=== PATIENT | female | born 1930 | race Caucasian/White ===

== ENCOUNTER 2019-01-04 18:03 | Inpatient (IN) | payer OTHER, MEDICARE ==
[2019-01-04 18:39] LABS: #Basophils 0.1 thou/uL (0.0-0.2); #Eosinphils 0.2 thou/uL (0.0-0.7); #Lymphocytes 1.2 thou/uL (1.20-3.40); #Monocytes 1.1 thou/uL (0.11-0.59); #Neutrophils 10.3 thou/uL (1.40-6.50); %Basophils 0.4 % (0.0-1.0); %Eosinophils 1.6 % (0.0-10.0); %Lymphocytes 9.1 % (21.0-51.0); %Monocytes 8.6 % (0.0-10.0); %Neutrophils 80.3 % (42.0-75.0); Hemoglobin 11.8 g/dL (12.0-16.0); Mean Corpuscular HGB CONC 34.8 g/dL (32.0-36.0); Mean Corpuscular Hemoglobin 30.6 pg (27.0-31.0); Mean Corpuscular Volume 88.1 fL (78.0-98.0); Platelet Count 312 thou/uL (130-400); RBC Distribution Width 11.8 % (11.5-14.5); Red Blood Cell (RBC) Count 3.86 mill/uL (4.20-5.40); White Blood Cell (WBC) Count 12.8 thou/uL (4.8-10.8)
[2019-01-04 19:04] LABS: ALT (SGPT) 60 U/L (8-55); AST (SGOT) 48 U/L (5-34); Albumin 3.6 g/dL (3.4-4.8); Alkaline Phosphatase 180 U/L (40-110); Anion Gap 15 mmol/L (10-20); BUN (Urea Nitrogen) 7 mg/dL (9.8-20.1); Bilirubin, Total 0.4 mg/dL (0.2-1.2); Calc. Creatinine Clearance 0 mL/min (70-130); Calcium 9.5 mg/dL (7.8-10.44); Carbon Dioxide 24 mmol/L (23-31); Chloride 100 mmol/L (98-107); Estimated GFR-MDRD 83; Globulin 3.2 g/dL (2.4-3.5); Glucose 109 mg/dL (83-110); Protein, Total 6.8 g/dL (6.0-8.3); Sodium 136 mmol/L (136-145)
[2019-01-04 19:06] LABS: Potassium 2.6 mmol/L (3.5-5.1)
[2019-01-04] MEDS ORDERED: Potassium Chloride 20 MEQ TAB ONE (19:23)
[2019-01-04] MEDS ORDERED: cefTRIAXone\\ROCEPHIN 1 GM VIAL ONE (19:23)
[2019-01-04] MEDS ORDERED: Azithromycin 500 MG VIAL ONE ×2 (19:23→20:18)
[2019-01-04 19:27] LABS: Bilirubin Negative (Negative); Blood, Urine Negative (Negative); Clarity Clear (Clear); Glucose, Urine (Dipstick) Normal (Negative); Leukocyte Negative Leu/uL (Negative); Nitrite Negative (Negative); Protein, Urine (Dipstick) Negative (Neg-Trace); Urobilinogen Normal mg/dL (Less than 2)
--- NOTE | 2019-01-04 22:05 | HP ---
PRIMARY CARE PHYSICIAN: Dr. Janine Parikh. REASON FOR ADMISSION: Pneumonia, sepsis, and failure of outpatient therapy. HISTORY OF PRESENT ILLNESS: An 88-year-old female with a past medical history of fibromyalgia, COPD, and hypertension, who had cough, started on January 01, 2019 , patient was also having subjective fever and chills. She was feeling weak and malaise. She went to urgent care on and she was diagnosed with pneumonia. Patient had a chest x-ray done at that time and subsequently, she had followup visit today and patient was found with worsening of infiltration. She had bibasilar effusion with infiltration. Patient was given oral antibiotic therapy, but patient did not improve and the condition worsened and that is why from urgent care today, patient was sent to ER for further evaluation. In the emergency room, patient was hypertensive, tachycardic, tachypneic, and afebrile. She was meeting sepsis criteria. Sepsis alert was initiated and patient was given azithromycin in the emergency room. Her influenza screen is negative. Patient is being admitted for further evaluation. Blood culture obtained. PAST MEDICAL HISTORY: Fibromyalgia, osteoarthritis, COPD, and hypertension. PAST SURGICAL HISTORY: Bilateral cataract surgery, shoulder surgery, appendicectomy, and hysterectomy. PAST PSYCHIATRIC HISTORY: Reviewed and negative. SOCIAL HISTORY: Patient drinks a few beers on a daily basis. She is a former smoker. She quit smoking more than 10 years ago. FAMILY HISTORY: No strong family history of premature coronary artery disease, stroke, or cancer. ALLERGIES: NO KNOWN DRUG ALLERGIES. CURRENT HOME MEDICATIONS: Patient did not bring her home medication, so unable to verify her home medication at this point. EMERGENCY ROOM COURSE: Patient has received Rocephin at urgent care and she will receive azithromycin here. Patient also received potassium chloride and IV fluid. REVIEW OF SYSTEM: All review of system reviewed with her and negative except as mentioned in HPI. PHYSICAL EXAMINATION: VITAL SIGNS: Currently, blood pressure 176/70, pulse 119, respiratory rate 26, temperature 98.0, and saturation 94% on room air. Weight 41.7 kg. GENERAL: Patient is thin, in no obvious acute distress. HEENT: Head; normocephalic, atraumatic. Eyes; pupils round, reactive to light. Extraocular muscles intact. ENT; oropharynx within normal limits. Moist mucous membranes. No oral lesion. No pharyngeal erythema. No exudate. NECK: Supple. No JVD. No meningeal signs of irritation. LUNGS: Bibasilar rales noted. Air entry reduced. No wheeze. No rhonchi. No accessory muscles of respiration in use. CARDIAC: S1, S2 regular. Tachycardia. No murmur. No gallop. No rub. ABDOMEN: Soft. Bowel sounds present. Nontender. Nondistended. No organomegaly. No mass. No suprapubic tenderness. BACK EXAMINATION: Unremarkable. No CVA tenderness. EXTREMITIES: Upper extremities, passive movement of all joints are normal. Lower extremity, no edema. Good distal pulsation. SKIN: No skin rash. HEMATOLOGICAL SYSTEM: No lymphadenopathy. NEUROLOGIC: Nonfocal examination. SIGNIFICANT LABORATORY DATA: CBC; WBC 12.8, hemoglobin 11.8, and platelet 312. BMP; sodium 136, potassium 2.6, chloride 100, carbon dioxide 24, BUN 7, creatinine 0.67, glucose 109, and calcium 9.5. LFT; protein 6.8, albumin 3.6, alkaline phosphatase 180, AST 48, ALT 60, lactic acid 1.0, and magnesium 1.9. Urinalysis normal. Influenza screen negative. ASSESSMENT/PLAN: 1. Sepsis due to pneumonia. 2. Community-acquired bacterial pneumonia. 3. Failure of outpatient therapy. 4. Abnormal LFT. 5. Anemia, normocytic, normochromic. 6. Hypertension. 7. Chronic obstructive pulmonary disease. 8. Fibromyalgia. 9. Osteoarthritis. 10. Protein-calorie malnutrition. 11. Ex-smoker. PLAN: Admission to medical floor. Continue Rocephin 1 g q.24 hour, and azithromycin 500 mg IV daily. We will repeat chest x-ray tomorrow. Nutritional support with Ensure t.i.d. We will obtain right upper quadrant ultrasound to rule out any gallbladder pathology. We will repeat labs again tomorrow. DVT prophylaxis with Lovenox 40 mg subcu daily. GI prophylaxis with Pepcid 20 mg p.o. b.i.d. We will also obtain hepatitis profile tomorrow morning. CODE STATUS: Patient is full code. Job ID: [id number] MTDD
[2019-01-04] MEDS ORDERED: Acetaminophen 325 MG TAB PO PRN (23:07)
[2019-01-04] MEDS ORDERED: Zolpidem Tartrate 5 MG TAB PO PRN (23:07)
[2019-01-04] MEDS ORDERED: Sodium Chloride 0.65% Nasal 44 ML BOT EA NARE PRN (23:07)
[2019-01-04] MEDS ORDERED: Sodium Chloride 0.9% 1,000 ML IV SCH (23:07)
[2019-01-04] MEDS ORDERED: Bisacodyl 10 MG SUPP PR PRN (23:07)
[2019-01-04] MEDS ORDERED: Loperamide HCl 2 MG CAP PO PRN (23:07)
[2019-01-04] MEDS ORDERED: Artificial Tears 18 DROP/0.9 ML EA EYE PRN (23:07)
[2019-01-04] MEDS ORDERED: HYDROcodone/Acetaminophen 5/325 mg Tablet PO PRN (23:07)
[2019-01-04] MEDS ORDERED: Senokot S 8.6-50 MG TAB PO PRN (23:07)
[2019-01-04] MEDS ORDERED: Calcium Carbonate 500 MG ChewTAB PO PRN ×2 (23:07)
[2019-01-04] MEDS ORDERED: Diabetic Tussin 200 MG/10 ML UDCUP PO PRN (23:07)
[2019-01-04] MEDS ORDERED: Cepastat Lozenges 1 LOZ PO PRN (23:07)
[2019-01-04] MEDS ORDERED: cloNIDine 0.1 MG TAB PO PRN (23:07)
[2019-01-04] MEDS ORDERED: Metoclopramide HCl 10 MG/2 ML VIAL IVP PRN (23:07)
[2019-01-04] MEDS ORDERED: Loratadine 10 MG TAB PO PRN (23:07)
[2019-01-04] MEDS ORDERED: guaiFENesin ER 600 MG TAB PO SCH (23:15)
[2019-01-04] MEDS ORDERED: methylPREDNISolone Sod Succ 40 MG VIAL IVP SCH (23:30)
[2019-01-04] MEDS: hydrALAZINE 20 MG/ML VIAL SLOW IVP PRN (23:31)
[2019-01-04] MEDS: methylPREDNISolone Sod Succ 40 MG VIAL IVP SCH (23:33)
[2019-01-04] MEDS: Vancomycin HCl 750 MG in Sodium Chloride 0.9% 250 ML 250 ML IVPB SCH (23:33)
[2019-01-05 00:11] LABS: Legionella Urinary Ag Negative (Negative); Strep pneumo Urine Ag NEGATIVE (NEGATIVE)
[2019-01-05] MEDS: methylPREDNISolone Sod Succ 40 MG VIAL IVP SCH ×3 (05:35→22:16)
[2019-01-05 05:42] LABS: #Lymphocytes 0.4 thou/uL (1.20-3.40); #Monocytes 0.1 thou/uL (0.11-0.59); #Neutrophils 6.7 thou/uL (1.40-6.50); %Basophils 0.2 % (0.0-1.0); %Eosinophils 0.3 % (0.0-10.0); %Monocytes 1.5 % (0.0-10.0); Hemoglobin 11.6 g/dL (12.0-16.0); Mean Corpuscular Hemoglobin 28.9 pg (27.0-31.0); Mean Corpuscular Volume 87.6 fL (78.0-98.0); Mean Platelet Volume 6.1 fL (7.4-10.4); Platelet Count 334 thou/uL (130-400); RBC Distribution Width 11.9 % (11.5-14.5); Red Blood Cell (RBC) Count 4.01 mill/uL (4.20-5.40); White Blood Cell (WBC) Count 7.3 thou/uL (4.8-10.8)
[2019-01-05 06:04] LABS: ALT (SGPT) 58 U/L (8-55); AST (SGOT) 46 U/L (5-34); Albumin 3.2 g/dL (3.4-4.8); Alkaline Phosphatase 170 U/L (40-110); Anion Gap 11 mmol/L (10-20); BUN (Urea Nitrogen) 7 mg/dL (9.8-20.1); Bilirubin, Total 0.3 mg/dL (0.2-1.2); Calc. Creatinine Clearance 43 mL/min (70-130); Calcium 8.9 mg/dL (7.8-10.44); Carbon Dioxide 24 mmol/L (23-31); Chloride 108 mmol/L (98-107); Estimated GFR-MDRD Greater than 90; Globulin 2.8 g/dL (2.4-3.5); Glucose 164 mg/dL (83-110); Potassium 3.3 mmol/L (3.5-5.1); Sodium 140 mmol/L (136-145)
[2019-01-05 06:25] LABS: HBCM Index 0.06 S/CO (0-0.79); HBSAg Index 0.18 S/CO (0-0.99); Hep A IgM AB Non-Reactive (NonReactive); Hep A IgM S/CO 0.15 S/CO (0-0.79); Hep B Surf Ag Non-Reactive S/CO (NonReactive); Hep C IgG Ab Non-Reactive (NonReactive); Hep C Index 0.08 S/CO (0-0.79); Hepatitis B Core IgM Abs Non-Reactive (NonReactive)
[2019-01-05] MEDS ORDERED: chlordiazePOXIDE/Clidinium Bromide Capsule PO PRN (07:39)
[2019-01-05] MEDS ORDERED: 1/2 NS w/KCL 20 mEq 1,000 ML IV SCH (07:45)
[2019-01-05] MEDS ORDERED: Potassium Chloride 20 MEQ TAB PO SCH (07:45)
[2019-01-05] MEDS: Amlodipine 5 MG TAB PO SCH ×2 (08:18→19:29)
[2019-01-05] MEDS: Saccharomyces boulardii 250 MG CAP PO SCH (08:18)
[2019-01-05] MEDS: Famotidine 20 MG TAB PO SCH (08:18)
[2019-01-05] MEDS: Metoprolol Tartrate 50 MG TAB PO SCH (08:18)
[2019-01-05] MEDS: guaiFENesin ER 600 MG TAB PO SCH ×2 (08:18→19:29)
[2019-01-05] MEDS: Lisinopril 20 MG TAB PO SCH (08:18)
[2019-01-05] MEDS ORDERED: Famotidine 20 MG TAB PO SCH (09:00)
[2019-01-05] MEDS ORDERED: FLU VACC TS2019-20(65YR UP)/PF 180 MCG/0.5 ML SYRINGE IM ONE (09:00)
--- NOTE | 2019-01-05 09:28 | ULT ---
GALLBLADDER ULTRASOUND: HISTORY: Right upper quadrant pain. TECHNIQUE/FINDINGS: Real-time imaging of the right upper quadrant shows a normal appearing gallbladder. The common duct i s in the 5 mm range. The liver parenchyma shows a small left lobe hepatic cyst measuring 7 mm. The ri ght kidney shows a mid pole right renal cyst measuring 8 mm. The pancreas is obscured. A small right pleural effusion is seen. IMPRESSION: 1. No evidence of gallstones. 2. Small hepatic and renal cysts. 3. Small right pleural effusion. POS: OFF
[2019-01-05] MEDS: Enoxaparin Sodium 30 MG/0.3 ML SYRINGE SC SCH (09:53)
--- NOTE | 2019-01-05 11:13 | PDOC.HOSPP ---
- Subjective Encounter Date: 01/05/19 Encounter Time: 08:45 Subjective: pt has dry cough, she is weak, no fever, overall better than yesterday Patient seen and examined. No new complaints. No overnight events - Objective Vital Signs & Weight: Vital Signs (12 hours) Temp Pulse Resp BP BP Pulse Ox 01/05/19 08:18 97 170/70 H 01/05/19 08:10 95 01/05/19 08:03 98.1 F 97 18 170/70 H 95 01/05/19 03:59 99.0 F 114 H 20 169/69 H 93 L 01/04/19 23:31 113 H 171/66 H Weight Weight 91 lb 14.924 oz I&O: 01/04/19 01/05/19 01/06/19 06:59 06:59 06:59 Intake Total 730 Balance 730 Result Diagrams: 01/05/19 05:23 01/05/19 05:23 Radiology Reviewed by me: Yes (US RUQ) Hospitalist ROS - Review of Systems Constitutional: reports: weakness. denies: fever, chills, sweats, malaise, other Eyes: denies: pain, vision change, conjunctivae inflammation, eyelid inflammation, redness, other ENT: denies: ear pain, ear discharge, nose pain, nose discharge, nose congestion , mouth pain, mouth swelling, throat pain, throat swelling, other Respiratory: reports: cough, shortness of breath. denies: dry, hemoptysis, SOB with excertion, pleuritic pain, sputum, wheezing, other Cardiovascular: denies: chest pain, palpitations, orthopnea, paroxysmal noc. dyspnea, edema, light headedness, other Gastrointestinal: denies: nausea, vomiting, abdominal pain, diarrhea, constipation, melena, hematochezia, other Genitourinary: denies: dysuria, frequency, incontinence, hematuria, retention, other Musculoskeletal: denies: neck pain, shoulder pain, arm pain, back pain, hand pain, leg pain, foot pain, other Skin: denies: rash, lesions, partha, bruising, other - Medication Medications: Active Medications Generic Name Dose Route Start Last Admin Trade Name Freq PRN Reason Stop Dose Admin Amlodipine Besylate 5 mg 01/05/19 09:00 01/05/19 08:18 Norvasc PO 5 mg BID DM Administration Enoxaparin Sodium 30 mg 01/05/19 09:00 01/05/19 09:53 Lovenox SC 30 mg 0900 DM Administration Famotidine 20 mg 01/05/19 09:00 01/05/19 08:18 Pepcid PO 20 mg DAILY DM Administration Guaifenesin 600 mg 01/05/19 09:00 01/05/19 08:18 Mucinex PO 600 mg Q12HR DM Administration Hydralazine HCl 10 mg 01/04/19 23:07 01/04/19 23:31 Apresoline SLOW IVP 10 mg Q4H PRN Administration SBP > 180 and HR < 70 Vancomycin HCl 750 mg/ Sodium 250 mls @ 250 mls/hr 01/04/19 23:59 01/04/19 23 :33 Chloride IVPB 250 mls 2359 DM Administration Potassium Chloride/Sodium Chloride 1,000 mls @ 50 mls/hr 01/05/19 07:45 01/05 09:53 1/2 Ns W/Kcl 20 Meq IV 1,000 mls .Q20H DM Administration Lisinopril 20 mg 01/05/19 09:00 01/05/19 08:18 Zestril PO 20 mg DAILY DM Administration Methylprednisolone Sodium Succinate 20 mg 01/04/19 23:07 01/05/19 05:35 Solu-Medrol IVP 20 mg Q8HR DM Administration Metoprolol Tartrate 50 mg 01/05/19 09:00 01/05/19 08:18 Lopressor PO 50 mg DAILY DM Administration Saccharomyces Boulardii 250 mg 01/05/19 09:00 01/05/19 08:18 Florastor PO 250 mg DAILY DM Administration Sodium Chloride 10 ml 01/05/19 09:00 01/05/19 08:21 Flush - Normal Saline IVF Not Given Q12HR [facility] - Exam General Appearance: NAD, awake alert General - other findings: thin Eye: PERRL, anicteric sclera ENT: normocephalic atraumatic, no oropharyngeal lesions Neck: supple, symmetric, no JVD, no thyromegaly Heart: RRR, no murmur, no gallops, no rubs Heart - other findings: tachycardia Respiratory: no wheezes, no rales, no ronchi Respiratory - other findings: reduced air entry both base Gastrointestinal: soft, non-tender, non-distended, normal bowel sounds Extremities: no cyanosis, no clubbing, no edema Skin: normal turgor, no lesions Neurological: cranial nerve grossly intact, no focal deficits Musculoskeletal: normal tone, normal strength Psychiatric: normal affect, normal behavior Hosp A/P (1) Community acquired bacterial pneumonia Code(s): J15.9 - UNSPECIFIED BACTERIAL PNEUMONIA Status: Acute (2) Failure of outpatient treatment Code(s): Z78.9 - OTHER SPECIFIED HEALTH STATUS Status: Acute (3) Abnormal LFTs Code(s): R94.5 - ABNORMAL RESULTS OF LIVER FUNCTION STUDIES Status: Acute (4) Protein-calorie malnutrition, moderate Code(s): E44.0 - MODERATE PROTEIN-CALORIE MALNUTRITION Status: Acute (5) Hypokalemia Code(s): E87.6 - HYPOKALEMIA Status: Acute (6) Sepsis Code(s): A41.9 - SEPSIS, UNSPECIFIED ORGANISM Status: Acute (7) Anemia, normocytic normochromic Code(s): D64.9 - ANEMIA, UNSPECIFIED Status: Chronic (8) Alcohol abuse Code(s): F10.10 - ALCOHOL ABUSE, UNCOMPLICATED Status: Chronic - Plan old records reviewed/req, plan discussed w/ family, continue antibiotics, PT/OT 01/05/19 continue rocephin, azithrmycin and vancomycin will repeat chest xray Medication reviewed as above, symptomatic treatment follow on culture nutritional support change ivf with 1/2 ns with kcl at 50 ml per hour, give kcl 20 meq one time dose home medication reconciled
--- NOTE | 2019-01-05 11:28 | RAD ---
EXAM: Chest PA and lateral: HISTORY: Pneumonia COMPARISON: 01/04/2019, 01/02/2019 FINDINGS: Heart: Persistent obscuration of the heart border due to bilateral pleural and parenchymal changes. Aorta: Atherosclerosis of the aortic knob Pulmonary vessels: Normal Costophrenic angles: Bilateral pleural effusions, left greater than right Lungs: Bibasilar opacities due to atelectasis, pneumonia or aspiration. Additional chronic changes of the lung parenchyma are noted. There is bilateral apical pleural thickening. Calcified granuloma in the right upper lobe. Pneumothorax: No pneumothorax Osseous structures: No osseous abnormalities IMPRESSION: No significant interval change.
[2019-01-05] MEDS: hydrALAZINE 20 MG/ML VIAL SLOW IVP PRN (16:54)
[2019-01-05] MEDS: cloNIDine 0.1 MG TAB PO PRN (18:14)
[2019-01-05] MEDS ORDERED: Labetalol HCl 100 MG/20 ML VIAL SLOW IVP PRN (18:57)
[2019-01-05] MEDS: Amitriptyline HCl 25 MG TAB PO SCH (19:29)
[2019-01-05] MEDS: Aspirin 81 mg Enteric Coated Tablet PO SCH (19:29)
[2019-01-05] MEDS ORDERED: Nitroglycerin 2% Ointment 1 INCH/1 GM Packet TOP SCH (19:30)
[2019-01-05] MEDS: cefTRIAXone\\ROCEPHIN 1 GM in Sodium Chloride 0.9% 100 ML IVPB SCH (20:37)
[2019-01-05] MEDS: Azithromycin 500 MG in Sodium Chloride 0.9% 250 ML 250 ML IVPB SCH (21:16)
[2019-01-06] MEDS: Vancomycin HCl 750 MG in Sodium Chloride 0.9% 250 ML 250 ML IVPB SCH (00:05)
[2019-01-06] MEDS: methylPREDNISolone Sod Succ 40 MG VIAL IVP SCH (06:18)
[2019-01-06] MEDS: Nitroglycerin 2% Ointment 1 INCH/1 GM Packet TOP SCH ×3 (06:19→23:11)
[2019-01-06 08:45] LABS: #Lymphocytes 0.7 thou/uL (1.20-3.40); #Monocytes 0.4 thou/uL (0.11-0.59); #Neutrophils 9.4 thou/uL (1.40-6.50); %Eosinophils 0.2 % (0.0-10.0); %Lymphocytes 6.7 % (21.0-51.0); %Monocytes 4.1 % (0.0-10.0); Hemoglobin 10.3 g/dL (12.0-16.0); Mean Corpuscular HGB CONC 33.1 g/dL (32.0-36.0); Mean Corpuscular Hemoglobin 29.2 pg (27.0-31.0); Mean Corpuscular Volume 88.4 fL (78.0-98.0); Mean Platelet Volume 6.1 fL (7.4-10.4); Platelet Count 352 thou/uL (130-400); Red Blood Cell (RBC) Count 3.51 mill/uL (4.20-5.40); White Blood Cell (WBC) Count 10.5 thou/uL (4.8-10.8)
[2019-01-06] MEDS: Saccharomyces boulardii 250 MG CAP PO SCH (08:54)
[2019-01-06] MEDS: Famotidine 20 MG TAB PO SCH (08:54)
[2019-01-06] MEDS: Lisinopril 20 MG TAB PO SCH (08:55)
[2019-01-06] MEDS: Amlodipine 5 MG TAB PO SCH ×2 (08:55→20:16)
[2019-01-06 08:56] LABS: ALT (SGPT) 45 U/L (8-55); AST (SGOT) 23 U/L (5-34); Albumin 2.9 g/dL (3.4-4.8); Alkaline Phosphatase 134 U/L (40-110); Anion Gap 10 mmol/L (10-20); BUN (Urea Nitrogen) 22 mg/dL (9.8-20.1); Bilirubin, Total 0.2 mg/dL (0.2-1.2); Calc. Creatinine Clearance 42 mL/min (70-130); Calcium 9.1 mg/dL (7.8-10.44); Carbon Dioxide 23 mmol/L (23-31); Chloride 108 mmol/L (98-107); Estimated GFR-MDRD 82; Globulin 2.6 g/dL (2.4-3.5); Glucose 149 mg/dL (83-110); Magnesium 1.9 mg/dL (1.6-2.6); Potassium 3.9 mmol/L (3.5-5.1); Protein, Total 5.5 g/dL (6.0-8.3); Sodium 137 mmol/L (136-145)
[2019-01-06] MEDS: Enoxaparin Sodium 30 MG/0.3 ML SYRINGE SC SCH (08:56)
[2019-01-06] MEDS: Metoprolol Tartrate 50 MG TAB PO SCH ×2 (08:56→20:16)
[2019-01-06] MEDS: guaiFENesin ER 600 MG TAB PO SCH ×2 (08:56→20:16)
--- NOTE | 2019-01-06 10:09 | PDOC.HOSPP ---
- Subjective Encounter Date: 01/06/19 Encounter Time: 08:00 Subjective: Patient seen and examined. No new complaints. No overnight events yesterday we transferred to [facility] for chest pain and tachycardia and hypertension pt has improvement, she feels better this morning - Objective Vital Signs & Weight: Vital Signs (12 hours) Temp Pulse Resp BP Pulse Ox 01/06/19 08:50 97.7 F 90 22 H 169/72 H 93 L 01/06/19 06:17 96 134/84 01/06/19 04:00 97.9 F 76 18 151/67 H 92 L 01/05/19 23:50 98.3 F 99 18 135/63 93 L Weight Admit Weight 91 lb 14.924 oz Weight 100 lb 12.8 oz I&O: 01/05/19 01/06/19 01/07/19 06:59 06:59 06:59 Intake Total 730 1410 Balance 730 1410 Result Diagrams: 01/06/19 07:59 01/06/19 07:59 Radiology Reviewed by me: Yes (chest xray reviewed) EKG Reviewed by me: Yes (nsr) Hospitalist ROS - Review of Systems Constitutional: denies: fever, chills, sweats, weakness, malaise, other Eyes: denies: pain, vision change, conjunctivae inflammation, eyelid inflammation, redness, other ENT: denies: ear pain, ear discharge, nose pain, nose discharge, nose congestion , mouth pain, mouth swelling, throat pain, throat swelling, other Respiratory: denies: cough, dry, shortness of breath, hemoptysis, SOB with excertion, pleuritic pain, sputum, wheezing, other Cardiovascular: denies: chest pain, palpitations, orthopnea, paroxysmal noc. dyspnea, edema, light headedness, other Gastrointestinal: denies: nausea, vomiting, abdominal pain, diarrhea, constipation, melena, hematochezia, other Genitourinary: denies: dysuria, frequency, incontinence, hematuria, retention, other Musculoskeletal: denies: neck pain, shoulder pain, arm pain, back pain, hand pain, leg pain, foot pain, other Skin: denies: rash, lesions, partha, bruising, other - Medication Medications: Active Medications Generic Name Dose Route Start Last Admin Trade Name Freq PRN Reason Stop Dose Admin Amitriptyline HCl 25 mg 01/05/19 21:00 01/05/19 19:29 Elavil PO 25 mg HS DM Administration Amlodipine Besylate 5 mg 01/05/19 09:00 01/06/19 08:55 Norvasc PO 5 mg BID DM Administration Aspirin 81 mg 01/05/19 21:00 01/05/19 19:29 Ecotrin PO 81 mg HS DM Administration Clonidine 0.1 mg 01/05/19 18:10 01/05/19 18:14 Catapres PO 0.1 mg Q4H PRN Administration SBP GREATER THAN 160 Enoxaparin Sodium 30 mg 01/05/19 09:00 01/06/19 08:56 Lovenox SC 30 mg 0900 DM Administration Famotidine 20 mg 01/05/19 09:00 01/06/19 08:54 Pepcid PO 20 mg DAILY DM Administration Guaifenesin 600 mg 01/05/19 09:00 01/06/19 08:56 Mucinex PO 600 mg Q12HR DM Administration Hydralazine HCl 10 mg 01/04/19 23:07 01/05/19 16:54 Apresoline SLOW IVP 10 mg Q4H PRN Administration SBP > 180 and HR < 70 Azithromycin 500 mg/ Sodium 250 mls @ 250 mls/hr 01/05/19 21:00 01/05/19 21: 16 Chloride IVPB 250 mls 2100 DM Administration Ceftriaxone Sodium 1 gm/ 100 mls @ 200 mls/hr 01/05/19 20:00 01/05/19 20:37 Sodium Chloride IVPB 100 mls 2000 DM Administration Vancomycin HCl 750 mg/ Sodium 250 mls @ 250 mls/hr 01/04/19 23:59 01/06/19 00 :05 Chloride IVPB 250 mls 2359 DM Administration Labetalol HCl 20 mg 01/05/19 18:57 01/05/19 19:08 Normodyne SLOW IVP 20 mg Q4H PRN Administration SBP Greater Than 170 Lisinopril 20 mg 01/05/19 09:00 01/06/19 08:55 Zestril PO 20 mg DAILY DM Administration Nitroglycerin 0.5 inch 01/06/19 06:00 01/06/19 06:19 Nitro-Bid 2% Ointment TOP 0.5 inch Q8HR DM Administration Saccharomyces Boulardii 250 mg 01/05/19 09:00 01/06/19 08:54 Florastor PO 250 mg DAILY DM Administration Sodium Chloride 10 ml 01/05/19 09:00 01/06/19 08:56 Flush - Normal Saline IVF Not Given Q12HR DM - Exam General Appearance: NAD, awake alert Eye: PERRL, anicteric sclera ENT: normocephalic atraumatic, no oropharyngeal lesions Neck: supple, symmetric, no JVD, no thyromegaly Heart: RRR, no murmur, no gallops, no rubs, normal peripheral pulses Respiratory: CTAB, no wheezes, no rales, no ronchi Respiratory - other findings: air entry improved Gastrointestinal: soft, non-tender, non-distended, normal bowel sounds Extremities: no cyanosis, no clubbing, no edema Skin: normal turgor, no lesions, no rashes Neurological: cranial nerve grossly intact, no focal deficits Musculoskeletal: normal tone, normal strength Psychiatric: normal affect, normal behavior Hosp A/P (1) Community acquired bacterial pneumonia Code(s): J15.9 - UNSPECIFIED BACTERIAL PNEUMONIA Status: Acute (2) Failure of outpatient treatment Code(s): Z78.9 - OTHER SPECIFIED HEALTH STATUS Status: Acute (3) Abnormal LFTs Code(s): R94.5 - ABNORMAL RESULTS OF LIVER FUNCTION STUDIES Status: Acute (4) Protein-calorie malnutrition, moderate Code(s): E44.0 - MODERATE PROTEIN-CALORIE MALNUTRITION Status: Acute (5) Hypokalemia Code(s): E87.6 - HYPOKALEMIA Status: Acute (6) Sepsis Code(s): A41.9 - SEPSIS, UNSPECIFIED ORGANISM Status: Acute (7) Anemia, normocytic normochromic Code(s): D64.9 - ANEMIA, UNSPECIFIED Status: Chronic (8) Alcohol abuse Code(s): F10.10 - ALCOHOL ABUSE, UNCOMPLICATED Status: Chronic (9) Chest pain Code(s): R07.9 - CHEST PAIN, UNSPECIFIED Status: Resolved (10) Hypertension Code(s): I10 - ESSENTIAL (PRIMARY) HYPERTENSION Status: Chronic - Plan old records reviewed/req, plan discussed w/ family, continue antibiotics, PT/OT 01/05/19 continue rocephin, azithrmycin and vancomycin will repeat chest xray Medication reviewed as above, symptomatic treatment follow on culture nutritional support change ivf with 1/2 ns with kcl at 50 ml per hour, give kcl 20 meq one time dose home medication reconciled 01/06/10 -DC IVF -medication reviewed as above, symptomatic treatment -change metoprolol 50 mg bid -wean off oxygen as tolerated -ruled out ACS -DC solumderol -DC vancomycin -expecting discharge tomorrow -discussed with son
--- NOTE | 2019-01-06 16:27 | EKG ---
Test Reason : Blood Pressure : / mmHG Vent. Rate : 127 BPM Atrial Rate : 127 BPM P-R Int : 144 ms QRS Dur : 090 ms QT Int : 320 ms P-R-T Axes : 075 069 -23 degrees QTc Int : 465 ms Sinus tachycardia Anterior infarct , age undetermined cannot be excluded Abnormal ECG Confirmed by ALEXANDER GRECO ([id number]) on 01/06/2019 4:26:48 PM Referred By: ABHISHEK Confirmed By:ALEXANDER GRECO
[2019-01-06] MEDS: cloNIDine 0.1 MG TAB PO PRN (16:32)
[2019-01-06] MEDS: cefTRIAXone\\ROCEPHIN 1 GM in Sodium Chloride 0.9% 100 ML IVPB SCH (20:15)
[2019-01-06] MEDS: Aspirin 81 mg Enteric Coated Tablet PO SCH (20:16)
[2019-01-06] MEDS: Amitriptyline HCl 25 MG TAB PO SCH (20:17)
[2019-01-06] MEDS: Azithromycin 500 MG in Sodium Chloride 0.9% 250 ML 250 ML IVPB SCH (20:51)
[2019-01-07] MEDS: Nitroglycerin 2% Ointment 1 INCH/1 GM Packet TOP SCH ×3 (05:51→22:30)
[2019-01-07] MEDS: Amlodipine 5 MG TAB PO SCH ×2 (09:18→20:26)
[2019-01-07] MEDS: Lisinopril 20 MG TAB PO SCH (09:18)
[2019-01-07] MEDS: guaiFENesin ER 600 MG TAB PO SCH ×2 (09:18→20:26)
[2019-01-07] MEDS: Enoxaparin Sodium 30 MG/0.3 ML SYRINGE SC SCH (09:18)
[2019-01-07] MEDS: Famotidine 20 MG TAB PO SCH (09:18)
[2019-01-07] MEDS: Metoprolol Tartrate 50 MG TAB PO SCH ×2 (09:19→20:26)
[2019-01-07] MEDS: Saccharomyces boulardii 250 MG CAP PO SCH (09:19)
[2019-01-07] MEDS: hydrALAZINE 20 MG/ML VIAL SLOW IVP PRN ×2 (12:11→20:24)
[2019-01-07] MEDS: cefTRIAXone\\ROCEPHIN 1 GM in Sodium Chloride 0.9% 100 ML IVPB SCH (20:25)
[2019-01-07] MEDS: Amitriptyline HCl 25 MG TAB PO SCH (20:26)
[2019-01-07] MEDS: Aspirin 81 mg Enteric Coated Tablet PO SCH (20:26)
[2019-01-07] MEDS: Azithromycin 500 MG in Sodium Chloride 0.9% 250 ML 250 ML IVPB SCH (21:52)
[2019-01-08] MEDS: Nitroglycerin 2% Ointment 1 INCH/1 GM Packet TOP SCH ×3 (05:48→21:53)
[2019-01-08] MEDS: Lisinopril 20 MG TAB PO SCH (09:45)
[2019-01-08] MEDS: Enoxaparin Sodium 30 MG/0.3 ML SYRINGE SC SCH (09:45)
[2019-01-08] MEDS: Famotidine 20 MG TAB PO SCH (09:46)
[2019-01-08] MEDS: guaiFENesin ER 600 MG TAB PO SCH ×2 (09:46→20:26)
[2019-01-08] MEDS: Metoprolol Tartrate 50 MG TAB PO SCH ×2 (09:46→20:27)
[2019-01-08] MEDS: Amlodipine 5 MG TAB PO SCH ×2 (09:46→20:27)
[2019-01-08] MEDS: Saccharomyces boulardii 250 MG CAP PO SCH (09:46)
[2019-01-08] MEDS: hydrALAZINE 20 MG/ML VIAL SLOW IVP PRN (11:24)
[2019-01-08 15:17] VITALS: BMI 21.2
[2019-01-08] MEDS: hydrALAZINE 25 MG TAB PO SCH ×4 (15:28→20:26)
[2019-01-08] MEDS ORDERED: Cefdinir 300 MG CAP PO SCH ×2 (18:15→21:00)
--- NOTE | 2019-01-08 19:28 | PDOC.HOSPP ---
- Subjective Encounter Date: 01/08/19 Encounter Time: 19:26 Subjective: Pt seen for followup re: pneumonia. Feels better. No chest pain or shortness of breath. Occ cough, no sputum. - Objective Vital Signs & Weight: Vital Signs (12 hours) Temp Pulse Pulse Resp BP BP BP 01/08/19 18:43 81 01/08/19 17:00 81 01/08/19 16:00 97.8 F 81 22 H 169/71 H 01/08/19 15:28 74 181/79 H 01/08/19 14:57 79 196/81 H 01/08/19 12:00 98.3 F 74 22 H 152/70 H 01/08/19 11:24 91 189/81 H 01/08/19 09:46 91 01/08/19 09:45 194/79 H 01/08/19 08:00 97.9 F 91 20 01/08/19 07:50 BP Pulse Ox 01/08/19 18:43 01/08/19 17:00 01/08/19 16:00 93 L 01/08/19 15:28 01/08/19 14:57 01/08/19 12:00 94 L 01/08/19 11:24 01/08/19 09:46 01/08/19 09:45 01/08/19 08:00 176/77 H 94 L 01/08/19 07:50 92 L Weight Admit Weight 91 lb 14.924 oz Weight 98 lb 4.8 oz I&O: 01/07/19 01/08/19 01/09/19 06:59 06:59 06:59 Intake Total 1420 Balance 1420 Result Diagrams: 01/06/19 07:59 01/06/19 07:59 Additional Labs: labs and MARs reviewed by nh Hospitalist ROS - Review of Systems Respiratory: reports: cough, dry. denies: shortness of breath, hemoptysis, SOB with excertion, pleuritic pain, sputum, wheezing Cardiovascular: denies: chest pain, palpitations, orthopnea, paroxysmal noc. dyspnea, edema, light headedness - Medication Medications: Active Medications Generic Name Dose Route Start Last Admin Trade Name Freq PRN Reason Stop Dose Admin Amitriptyline HCl 25 mg 01/05/19 21:00 01/07/19 20:26 Elavil PO 25 mg HS DM Administration Amlodipine Besylate 5 mg 01/05/19 09:00 01/08/19 09:46 Norvasc PO 5 mg BID DM Administration Aspirin 81 mg 01/05/19 21:00 01/07/19 20:26 Ecotrin PO 81 mg HS DM Administration Clonidine 0.1 mg 01/05/19 18:10 01/06/19 16:32 Catapres PO 0.1 mg Q4H PRN Administration SBP GREATER THAN 160 Enoxaparin Sodium 30 mg 01/05/19 09:00 01/08/19 09:45 Lovenox SC 30 mg 0900 DM Administration Famotidine 20 mg 01/05/19 09:00 01/08/19 09:46 Pepcid PO 20 mg DAILY DM Administration Guaifenesin 600 mg 01/05/19 09:00 01/08/19 09:46 Mucinex PO 600 mg Q12HR DM Administration Hydralazine HCl 10 mg 01/04/19 23:07 01/08/19 11:24 Apresoline SLOW IVP 10 mg Q4H PRN Administration SBP > 180 and HR < 70 Hydralazine HCl 25 mg 01/08/19 13:00 01/08/19 18:43 Apresoline PO 25 mg QID DM Administration Labetalol HCl 20 mg 01/05/19 18:57 01/05/19 19:08 Normodyne SLOW IVP 20 mg Q4H PRN Administration SBP Greater Than 170 Lisinopril 20 mg 01/05/19 09:00 01/08/19 09:45 Zestril PO 20 mg DAILY DM Administration Metoprolol Tartrate 50 mg 01/06/19 21:00 01/08/19 09:46 Lopressor PO 50 mg BID DM Administration Nitroglycerin 0.5 inch 01/06/19 06:00 01/08/19 15:27 Nitro-Bid 2% Ointment TOP 0.5 inch Q8HR DM Administration Saccharomyces Boulardii 250 mg 01/05/19 09:00 01/08/19 09:46 Florastor PO 250 mg DAILY DM Administration Sodium Chloride 10 ml 01/05/19 09:00 01/08/19 09:46 Flush - Normal Saline IVF 10 ml Q12HR DM Administration - Exam General Appearance: NAD Eye: anicteric sclera ENT: moist mucosa Neck: supple Heart: RRR Respiratory: CTAB, no wheezes Gastrointestinal: soft, non-tender Musculoskeletal: normal tone, normal strength Psychiatric: normal affect, normal behavior Hosp A/P (1) Community acquired bacterial pneumonia Code(s): J15.9 - UNSPECIFIED BACTERIAL PNEUMONIA Status: Acute (2) Hypertension Code(s): I10 - ESSENTIAL (PRIMARY) HYPERTENSION Status: Chronic (3) Protein-calorie malnutrition, moderate Code(s): E44.0 - MODERATE PROTEIN-CALORIE MALNUTRITION Status: Chronic - Plan plan discussed w/ family, continue antibiotics, PT/OT Switch to oral antibiotics. Start scheduled oral hydralazine for hypertension. Discussed with son. Ordered repeat CXR. Likely home tomorrow.
[2019-01-08] MEDS: Aspirin 81 mg Enteric Coated Tablet PO SCH (20:27)
[2019-01-08] MEDS: Amitriptyline HCl 25 MG TAB PO SCH (21:53)
[2019-01-09] MEDS: hydrALAZINE 20 MG/ML VIAL SLOW IVP PRN (03:47)
[2019-01-09] MEDS: Nitroglycerin 2% Ointment 1 INCH/1 GM Packet TOP SCH ×3 (10:09→22:05)
[2019-01-09] MEDS: guaiFENesin ER 600 MG TAB PO SCH ×2 (10:14→20:01)
[2019-01-09] MEDS: Amlodipine 5 MG TAB PO SCH ×2 (10:14→20:02)
[2019-01-09] MEDS: Famotidine 20 MG TAB PO SCH (10:14)
[2019-01-09] MEDS: Metoprolol Tartrate 50 MG TAB PO SCH (10:15)
[2019-01-09] MEDS: Lisinopril 20 MG TAB PO SCH ×2 (10:15→20:03)
[2019-01-09] MEDS: Enoxaparin Sodium 30 MG/0.3 ML SYRINGE SC SCH (10:16)
[2019-01-09] MEDS: hydrALAZINE 25 MG TAB PO SCH ×4 (10:16→20:01)
[2019-01-09] MEDS: Cefdinir 300 MG CAP PO SCH ×2 (10:22→20:01)
[2019-01-09] MEDS: Saccharomyces boulardii 250 MG CAP PO SCH (10:23)
--- NOTE | 2019-01-09 12:11 | RAD ---
2 VIEW CHEST: Date: 01/09/19 HISTORY: Pneumonia. COMPARISON: 01/05/19. FINDINGS: There are bilateral pleural effusions, larger on the left. Associated bibasilar atelectasis. The uppe r lung zones remain clear of infiltrate. There is a nodular opacity in the right upper lung which has been present on prior exams. Soft tissue pulmonary nodule is not excluded and this should be evaluat ed with elective chest CT. IMPRESSION: 1. Bilateral pleural effusions, larger on the left, with no acute interval change. 2. Evidence of a nodular density overlying the right upper lung. This overlies the anterolateral rig ht second rib and may be osseous; however, an underlying nodule is not excluded. Consider follow-up C T unless this can be confirmed stable on earlier films prior to August 2018. POS: ARIEL
--- NOTE | 2019-01-09 16:03 | PDOC.HOSPP ---
- Subjective Encounter Date: 01/09/19 Encounter Time: 12:20 Subjective: No complaint expressed.. - Objective Vital Signs & Weight: Vital Signs (12 hours) Temp Pulse Resp BP BP BP Pulse Ox 01/09/19 14:32 76 01/09/19 11:50 98 F 76 18 137/65 93 L 01/09/19 10:16 95 01/09/19 10:14 95 01/09/19 08:39 146/66 H 01/09/19 07:55 97.3 F L 95 18 185/79 H 93 L 01/09/19 04:22 79 16 152/66 H Weight Admit Weight 91 lb 14.924 oz Weight 98 lb 4.8 oz Result Diagrams: 01/06/19 07:59 01/06/19 07:59 Hospitalist ROS - Medication Medications: Active Medications Generic Name Dose Route Start Last Admin Trade Name Freq PRN Reason Stop Dose Admin Amitriptyline HCl 25 mg 01/05/19 21:00 01/08/19 21:53 Elavil PO 25 mg HS DM Administration Amlodipine Besylate 5 mg 01/05/19 09:00 01/09/19 10:14 Norvasc PO 5 mg BID DM Administration Aspirin 81 mg 01/05/19 21:00 01/08/19 20:27 Ecotrin PO 81 mg HS DM Administration Cefdinir 300 mg 01/09/19 09:00 01/09/19 10:22 Omnicef PO 300 mg BID DM Administration Clonidine 0.1 mg 01/05/19 18:10 01/06/19 16:32 Catapres PO 0.1 mg Q4H PRN Administration SBP GREATER THAN 160 Enoxaparin Sodium 30 mg 01/05/19 09:00 01/09/19 10:16 Lovenox SC 30 mg 0900 DM Administration Famotidine 20 mg 01/05/19 09:00 01/09/19 10:14 Pepcid PO 20 mg DAILY DM Administration Guaifenesin 600 mg 01/05/19 09:00 01/09/19 10:14 Mucinex PO 600 mg Q12HR DM Administration Hydralazine HCl 10 mg 01/04/19 23:07 01/09/19 03:47 Apresoline SLOW IVP 10 mg Q4H PRN Administration SBP > 180 and HR < 70 Hydralazine HCl 25 mg 01/08/19 13:00 01/09/19 14:32 Apresoline PO 25 mg QID DM Administration Labetalol HCl 20 mg 01/05/19 18:57 01/05/19 19:08 Normodyne SLOW IVP 20 mg Q4H PRN Administration SBP Greater Than 170 Nitroglycerin 0.5 inch 01/06/19 06:00 01/09/19 14:33 Nitro-Bid 2% Ointment TOP 0.5 inch Q8HR DM Administration Saccharomyces Boulardii 250 mg 01/05/19 09:00 01/09/19 10:23 Florastor PO 250 mg DAILY DM Administration Sodium Chloride 10 ml 01/05/19 09:00 01/09/19 10:17 Flush - Normal Saline IVF 10 ml Q12HR DM Administration Sodium Chloride 10 ml 01/05/19 07:48 01/09/19 03:48 Flush - Normal Saline IVF 10 ml PRN PRN Administration Saline Flush - Exam General Appearance: NAD Neck: supple Heart: RRR Respiratory: CTAB Gastrointestinal: soft Extremities: no edema Neurological: no focal deficits Hosp A/P (1) Protein calorie malnutrition Code(s): E46 - UNSPECIFIED PROTEIN-CALORIE MALNUTRITION Status: Acute Plan: increase protein intake.. (2) Community acquired bacterial pneumonia Code(s): J15.9 - UNSPECIFIED BACTERIAL PNEUMONIA Status: Acute Plan: on antibiotics.. (3) Hypertension Code(s): I10 - ESSENTIAL (PRIMARY) HYPERTENSION Status: Chronic Plan: adjust med.. - Plan Continue current management.
[2019-01-09] MEDS: Aspirin 81 mg Enteric Coated Tablet PO SCH (20:01)
[2019-01-09] MEDS: Metoprolol Tartrate 25 MG TAB PO SCH (20:01)
[2019-01-09] MEDS: Amitriptyline HCl 25 MG TAB PO SCH (22:02)
[2019-01-10] MEDS ORDERED: Temazepam 15 MG CAP PO PRN
[2019-01-10] MEDS: cloNIDine 0.1 MG TAB PO PRN (03:59)
[2019-01-10] MEDS: Nitroglycerin 2% Ointment 1 INCH/1 GM Packet TOP SCH ×2 (05:39→14:14)
[2019-01-10 08:43] VITALS: TEMP 97.6
[2019-01-10] MEDS: hydrALAZINE 25 MG TAB PO SCH ×2 (09:16→14:13)
[2019-01-10] MEDS: Metoprolol Tartrate 25 MG TAB PO SCH (09:16)
[2019-01-10] MEDS: Lisinopril 20 MG TAB PO SCH (09:16)
[2019-01-10] MEDS: Cefdinir 300 MG CAP PO SCH (09:16)
[2019-01-10] MEDS: guaiFENesin ER 600 MG TAB PO SCH (09:17)
[2019-01-10] MEDS: Amlodipine 5 MG TAB PO SCH (09:18)
[2019-01-10] MEDS: Saccharomyces boulardii 250 MG CAP PO SCH (09:18)
[2019-01-10] MEDS: Famotidine 20 MG TAB PO SCH (09:18)
[2019-01-10 09:19] VITALS: BP 162/66
[2019-01-10] MEDS: Enoxaparin Sodium 30 MG/0.3 ML SYRINGE SC SCH (09:19)
[2019-01-10 11:05] LABS: Anion Gap 12 mmol/L (10-20); BUN (Urea Nitrogen) 13 mg/dL (9.8-20.1); Calc. Creatinine Clearance 40 mL/min (70-130); Calcium 8.7 mg/dL (7.8-10.44); Carbon Dioxide 23 mmol/L (23-31); Chloride 101 mmol/L (98-107); Estimated GFR-MDRD 79; Glucose 152 mg/dL (83-110); Potassium 3.2 mmol/L (3.5-5.1); Sodium 133 mmol/L (136-145)
--- NOTE | 2019-01-10 13:23 | CON ---
DATE OF CONSULTATION: 01/10/2019 This encompassed 50 minutes of time, of that time, greater than 50% was spent with the patient and/or the patient's unit in the hospital, reviewing records and speaking with nursing staff. REASON FOR CONSULTATION: Lung nodule. HISTORY OF PRESENT ILLNESS: This is an 88-year-old female, who was initially hospitalized on 01/04/2019 with shortness of breath, fever, chills, and weakness. She was diagnosed with sepsis due to pneumonia. She has been treated with antibiotics. Her chest x-ray has steadily improved throughout the course of the hospitalization and she is scheduled to go home today. I was asked to see her regarding a small lung nodule in the right upper lobe. This lady has previously received pulmonary care in [place]. She does not know of any history of a lung nodule, although she is not sure. She says she has bronchiectasis. Currently, she is asymptomatic from a pulmonary standpoint. PAST MEDICAL HISTORY: 1. Fibromyalgia. 2. COPD. 3. Bronchiectasis. 4. Osteoarthritis. 5. Hypertension. PAST SURGICAL HISTORY: 1. Bilateral cataract surgery. 2. Shoulder surgery. 3. Appendectomy. 4. Hysterectomy. SOCIAL HISTORY: She drinks a few beers a day. Quit smoking more than 50 years ago. Does not use illicit drugs. FAMILY MEDICAL HISTORY: Unremarkable for lung cancer. ALLERGIES: NONE. MEDICATIONS: At home, she takes; 1. Librax. 2. Ecotrin. 3. Metoprolol. 4. Lisinopril. 5. Norvasc. 6. Elavil. She is currently receiving Omnicef for antibiotic coverage in the hospital. REVIEW OF SYSTEMS: Ten-point review of systems is otherwise negative. PHYSICAL EXAMINATION: VITAL SIGNS: Temperature 97.6, pulse 75, blood pressure 162/66, and O2 saturation 92% on room air. GENERAL: She is a thin female, in no acute distress. HEENT: Pupils react. Sclerae are icteric. Oropharynx clear. NECK: No adenopathy or JVD. CHEST: Clear to auscultation. CARDIAC: S1 and S2 regular without murmur. ABDOMEN: Soft, nontender, and nondistended. EXTREMITIES: No clubbing, cyanosis, or edema. LABORATORY DATA: White blood cell count 10.5, hematocrit 31, and platelet count 352. Sodium 133, potassium 3.2, chloride 101, CO2 of 23, BUN 13, creatinine 0.7, and glucose 152. BNP has not been done during this hospitalization. IMAGING DATA: Her chest x-ray when she initially presented had fairly marked bilateral effusions, left greater than right. Her current chest x-ray shows gross improvement. In those findings, there is a maybe 4-mm right upper lobe questionable nodule. ASSESSMENT: 1. Questionable right upper lobe nodule - 4 mm in size, an ex-smoker. 2. Bilateral effusions, which have improved during this hospitalization. 3. Hypertension. RECOMMENDATIONS: 1. I would wonder whether or not she actually had heart failure when she was admitted and she has just improved during the course of the hospitalization. I think that might account for the effusions in the improvement. I would not expect a parapneumonic effusion improved this fast. 2. The right upper lobe lung nodule needs to be followed up as an outpatient. She needs to be able to find records or films from her old provider and let me compare. If nothing is present on the old records, then we will need to proceed with a CT of the chest. I gave her, her card, so she can make an appointment in my office within the next month. Job ID: [id number]
--- NOTE | 2019-01-10 14:24 | DIS ---
DATE OF ADMISSION: 01/04/2019 DATE OF DISCHARGE: 01/10/2019 ADMITTING DIAGNOSES: Pneumonia with pleural effusion, acute hypoxic respiratory failure, chronic kidney disease, chronic normocytic anemia, and hypertension. DISCHARGE DIAGNOSES: Pneumonia with pleural effusion, acute hypoxic respiratory failure, chronic kidney disease, chronic normocytic anemia, and hypertension. CONSULTANTS: Dr. Cotter and Dr. Alvarez. PROCEDURES: Chest x-ray, IV administration of antibiotics, bronchodilator via nebulizer. COURSE OF HOSPITALIZATION: Uncomplicated. Responded well to management. We have to mention also that the patient was noticed to have a lung nodule and Pulmonary was consulted. She is to follow up with the consultants and also with her primary care physician. DISCHARGE MEDICATION: Please see discharge medication reconciliation sheet. PHYSICAL EXAMINATION: GENERAL: Today, patient is alert, oriented, cooperative, in no distress. VITAL SIGNS: Her latest vital signs show a temperature of 97.5, pulse rate 82, respiratory rate 20, and blood pressure 127/60. HEENT: Her head and neck examination is normal. She has regular S1 and S2. LUNGS: Clear. She has some dullness at the right lung base. ABDOMEN: Soft. EXTREMITIES: She has no leg edema. NEUROLOGIC: She moves all extremities. FOLLOWUP: The patient is to follow up with the consultants namely pulmonology, GI, and also with her primary care physician. TIME SPENT: Discharge time, 32 minutes. Job ID: [id number]
== END 2019-01-10 16:00 | disposition home or self-care (01) | DRG 871 ==
LOC: ERS 18:03 → T4-A 20:25 → 2NO 01-05 20:16 → ONC 01-07 18:12
PROVIDERS: ADMIT Internal Medicine; ATTEND Internal Medicine
DX: A41.9 Sepsis, unspecified organism (principal); J96.21 Acute and chronic respiratory failure with hypoxia; J15.9 Unspecified bacterial pneumonia; J44.0 Chronic obstructive pulmonary disease with (acute) lower respiratory infection; E44.0 Moderate protein-calorie malnutrition; J91.8 Pleural effusion in other conditions classified elsewhere; J47.0 Bronchiectasis with acute lower respiratory infection; M79.7 Fibromyalgia; F10.10 Alcohol abuse, uncomplicated; I12.9 Hypertensive chronic kidney disease with stage 1 through stage 4 chronic kidney disease, or unspecified chronic kidney disease; E87.6 Hypokalemia; N18.9 Chronic kidney disease, unspecified; D63.1 Anemia in chronic kidney disease; M19.90 Unspecified osteoarthritis, unspecified site; Z90.49 Acquired absence of other specified parts of digestive tract; Z90.710 Acquired absence of both cervix and uterus; Z87.891 Personal history of nicotine dependence; Z98.42 Cataract extraction status, left eye; Z98.41 Cataract extraction status, right eye; Z68.21 Body mass index [BMI] 21.0-21.9, adult
CPT/HCPCS: 36415; 71046; 76705; 80048; 80053; 80074; 81003; 83605; 83735; 84484; 85025; 87040; 87449; 87804; 87899; 93005; 93010; 96361; 96365; 96367; J0360; J0456; J0696; J1650; J2920; J3370; J3480; J3490; J7050

== ENCOUNTER 2019-11-17 15:23 | Outpatient (CLI) | payer MEDICARE, OTHER ==
--- NOTE | 2019-11-17 16:14 | RAD ---
RIGHT HIP: 11/17/19 Three views. HISTORY: Right hip pain. FINDINGS: No comparison. FINDINGS: There has been prior internal fixation of the right hip with intramedullary yogesh and pin transfixing t he femoral neck. There are posttraumatic deformities noted and there is evidence of adequate healing. There are degenerative changes at the hip with spurring from the femoral head and joint narrowing. N o fracture or acute abnormality identified. IMPRESSION: Postoperative and degenerative changes of the right hip. POS: AH
--- NOTE | 2019-11-17 16:17 | RAD ---
SACRUM AND COCCYX: 11/17/19 Two views. HISTORY: Coccydynia. Hip pain. FINDINGS: Prominent degenerative changes at the lumbosacral region seen with disc narrowing and scoliotic curva ture of the lumbar spine which is incompletely evaluated on this study. Sacrum and coccyx appear intact. No fracture or focal lesion identified. SI joints appear symmetric. 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 Sacrum and coccyx appear unremarkable. POS: AH
== END 2019-11-17 15:24 | disposition home or self-care (01) ==
LOC: BICRAD 15:23
PROVIDERS: ATTEND Family Medicine
DX: M25.551 Pain in right hip (principal); M53.3 Sacrococcygeal disorders, not elsewhere classified; G89.4 Chronic pain syndrome; M47.816 Spondylosis without myelopathy or radiculopathy, lumbar region; M47.817 Spondylosis without myelopathy or radiculopathy, lumbosacral region; M16.11 Unilateral primary osteoarthritis, right hip; Z98.890 Other specified postprocedural states
CPT/HCPCS: 72220

== ENCOUNTER 2019-11-19 12:24 | Outpatient (CLI) | payer MEDICARE, OTHER ==
--- NOTE | 2019-11-19 12:55 | ULT ---
Thyroid ultrasound: 11/19/2019 HISTORY: Cyst TECHNIQUE: Multiplanar grayscale sonographic imaging of the thyroid gland obtained. FINDINGS: Thyroid isthmus measures 2 mm in AP dimension, right lobe measures 4.0 x 1.7 x 1.7 cm and l eft lobe measures 4.1 x 1.1 x 1.4 cm. Numerous small nodules are noted within the right lobe of the thyroid gland, measuring up to 7 mm. Th leidy nodules are primarily heterogeneously hypoechoic and likely represent small solid nodules and/or complex cystic nodules. There is a similar 5 mm nodule within the isthmus there are 2 nodules noted within the left lobe, the larger measuring 7 x 10 x 4 mm and the smaller measuring 6 x 8 x 5 mm. The 2 small nodules in the left lobe are heterogeneously hypoechoic/solid nodules. IMPRESSION:TI-RADS category 4-moderately suspicious. Given a left nodule measuring up to 1 cm, a foll ow-up ultrasound in one year is recommended.
== END 2019-11-19 12:25 | disposition home or self-care (01) ==
LOC: BICULT 12:24
PROVIDERS: ATTEND Family Medicine
DX: E04.1 Nontoxic single thyroid nodule (principal)
CPT/HCPCS: 76536

== ENCOUNTER 2019-12-11 13:10 | Outpatient (CLI) | payer MEDICARE, OTHER ==
--- NOTE | 2019-12-11 13:43 | RAD ---
PA AND LATERAL CHEST: 12/11/19 HISTORY: Dyspnea. COMPARISON: 01/09/19 study. Heart size is within normal limits. There are atherosclerotic changes of the aorta. Chronic appearing lung changes are seen. No acute process. IMPRESSION: Chronic lung change. Interval resolution of left sided effusion as compared to the 2019 study. POS: BALBINA
== END 2019-12-11 13:11 | disposition home or self-care (01) ==
LOC: BICRAD 13:10
PROVIDERS: ATTEND Internal Medicine Critical Care Medicine
DX: R06.00 Dyspnea, unspecified (principal); J98.4 Other disorders of lung
CPT/HCPCS: 71046

== ENCOUNTER 2020-02-10 10:36 | Outpatient (CLI) | payer MEDICARE, OTHER ==
--- NOTE | 2020-02-10 11:59 | CT ---
CT of the chest: 02/10/2020 COMPARISON: None HISTORY: Lung nodule TECHNIQUE: Axial CT imaging obtained at 3 mm intervals through the chest with IV contrast. Coronal an d sagittal reformatted imaging obtained. FINDINGS: No axillary lymphadenopathy. Multiple mildly prominent subcentimeter superior mediastinal l ymph nodes are noted. No hilar adenopathy on either side. There is a 1.1 cm mildly enlarged right paratracheal node. Limited assessment of the upper abdomen demonstrates a small hypodensity within the right lobe of the liver on axial image 88 measuring 5 mm, too small to characterize. Subcentimeter hypodensities are noted within both kidneys, difficult to fully characterize given small size, likely representing subc entimeter cysts. There is a nonspecific low-density lesion within the lateral aspect of the left lobe of the liver on axial image 98 measuring 8 mm, also too small to characterize. Follow-up ultraso und may be beneficial if clinically warranted. Multifocal atherosclerotic calcification of the upper abdominal aorta and its branches. The splenic a rtery is tortuous. Mild coronary arterial calcification is noted. There is scattered atherosclerotic calcification involving the proximal great vessels, the aortic arc h, and the descending thoracic aorta. No pneumothorax is evident. No significant pericardial or mediastinal fluid. No left pleural effusion. There is a small nonspecif ic right pleural effusion. Mild biapical reticulonodular pleural thickening, right greater than left. Within the anterior inferior aspect of the right upper lobe there is anterior nonspecific reticulonod ular density with mild bronchial wall thickening as well as bronchial plugging and mild bronchiectasis. Within the anterior inferior aspect of the right middle lobe there is mild reticulono dular density with mild peripheral bronchial wall thickening and mucous plugging. Within the inferior aspect of the right lower lobe posteriorly and laterally there is mild nonspecifi c reticulonodular density. There is mild peripheral inferior posterior left lower lobe reticulonodular density with areas of sca ttered mild left lower lobe bronchiectasis. No significant pulmonary parenchymal abnormality is seen involving the left upper lobe. Review of the osseous structures demonstrates multilevel spinal degenerative change with disc space n arrowing and anterior osteophyte formation. There is no worrisome lytic or blastic bone lesion seen. IMPRESSION: Scattered areas of reticulonodular density are noted bilaterally, right greater than left , with a basilar predominance. Findings suggest atypical infectious process, such as ALEXIA. Follow-up CT may be beneficial. Multiple additional incidental findings as detailed above.
[2020-02-10] MEDS ORDERED: Iopamidol 370 76% 100 ML VIAL ONE (14:21)
== END 2020-02-10 10:37 | disposition home or self-care (01) ==
LOC: BICCT 10:36
PROVIDERS: ATTEND Internal Medicine Critical Care Medicine
DX: R91.1 Solitary pulmonary nodule (principal); J98.4 Other disorders of lung; I70.0 Atherosclerosis of aorta; I25.10 Atherosclerotic heart disease of native coronary artery without angina pectoris; J90 Pleural effusion, not elsewhere classified; J47.9 Bronchiectasis, uncomplicated; J92.9 Pleural plaque without asbestos
CPT/HCPCS: 71260; 82565; Q9967

== ENCOUNTER 2020-12-13 14:21 | Outpatient (CLI) | payer MEDICARE, OTHER ==
[~2020-12-13 14:21] MED LIST: Iopamidol 370 76% 100 ML VIAL ONE
== END 2020-12-13 14:22 | disposition home or self-care (01) ==
LOC: BICCT 14:21
PROVIDERS: ATTEND Internal Medicine Cardiovascular Disease
DX: R91.1 Solitary pulmonary nodule (principal); E04.1 Nontoxic single thyroid nodule; M47.812 Spondylosis without myelopathy or radiculopathy, cervical region
CPT/HCPCS: 70498; 82565

== ENCOUNTER 2021-01-23 15:51 | Outpatient (CLI) | payer MEDICARE, OTHER | END 2021-01-23 15:52 | disposition home or self-care (01) | LOC: BICULT 15:51 | PROVIDERS: ATTEND Student in an Organized Health Care Education/Training Program | DX: E04.2 Nontoxic multinodular goiter (principal) | CPT/HCPCS: 76536 ==